=== PATIENT | male | born 1950 | race Hispanic/Latino ===

== ENCOUNTER 2017-11-05 13:19 | Outpatient (CLI) | payer MEDICARE, BC ==
--- NOTE | 2017-11-05 15:45 | RAD ---
SIX VIEWS CERVICAL SPINE: INDICATION: History of prior neck surgery with pain between the shoulders. FINDINGS: There is an ACDF spanning C3 through C6. Spinal alignment appears within normal limits. No abnormal translational motion is grossly evident. The instrumentation projects in the expected position. Th ere are prominent carotid body calcifications within the neck. The lung apices are clear. Small C7 ribs are present bilaterally. IMPRESSION: 1. Anterior cervical diskectomy and fusion spanning C3 through C6. 2. No anterior abnormal translational motion. 3. Bilateral cervical ribs at C7. POS: [facility]
--- NOTE | 2017-11-05 15:50 | CT ---
CT CERVICAL SPINE WITHOUT CONTRAST: INDICATION: Pain within the shoulder blades. History of neck surgery 3 years ago. FINDINGS: Thee is an ACDF spanning C3 through C6. There is moderate degenerative disk disease at C6-7. There is congenital central canal narrowing, mild to moderate in severity. No acute fracture is evident. Craniocervical junction demonstrates a mild to moderate degenerative c hange. There are calcifications of the C1-C2 ligaments with some periarticular erosive change of the dens which can be seen with entities such as CPP deposition disease. At C2-C3, there is no appreciable osseous central canal narrowing. There is uncovertebral facet join t degenerative change likely inducing mild left osseous neural foraminal narrowing. At C3-4, there is no appreciable osseous central canal or neural foraminal narrowing. At C4-5, there is no appreciable osseous central canal or neural foraminal narrowing. At C5-6, there is no appreciable osseous neural foraminal narrowing. At C6-7, there is osseous neural foraminal narrowing. At C7-T1, there is no appreciable osseous neural foraminal narrowing. There are small cervical ribs seen at C7. Prevertebral soft tissues appear within normal limits. Lung apices are clear. IMPRESSION: 1. Anterior cervical diskectomy and fusion spanning C3 through C6 with moderate adjacent segment deg eneration of C6-7. There is mild left osseous neural foraminal narrowing at C2-3. 2. 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 3. Periarticular erosive change of the dens with associated adjacent periarticular ligamentous calci fications can be seen with entities such as calcium pyrophosphate dihydrate deposition disease. 4. Bilateral cervical ribs at C7. POS: [facility]
--- NOTE | 2017-11-05 15:58 | RAD ---
RADIOGRAPH LUMBAR SPINE 4 VIEWS: 11/05/2017 HISTORY: A 47-year-old male with lumbar radiculopathy (M54.16). COMPARISON: None. TECHNIQUE: AP view. Lateral view. Lateral flexion and extension views. FINDINGS: There are five lumbar type vertebrae. There is anterior wedge compression fracture deformity of unkn own age of T12, with a maximum of at least 50% loss of height anteriorly. The lumbar vertebral body heights are maintained. Disk spaces are maintained. Alignment is normal. There is no instability b etween flexion and extension. There are moderately large marginal endplate osteophytes that protrude bilaterally laterally into the prevertebral space. There are multiple surgical clips in the posteri or aspect of the abdominal cavity and anterior pelvis. IMPRESSION: 1. Compression fracture of T12, of unknown age. 2. No spondylolisthesis and no instability. 3. No disc space narrowing in the lumbar spine at any level. 4. Evidence of previous abdominal and pelvic surgery. REJI [] POS: [facility]
--- NOTE | 2017-11-05 16:26 | MRI ---
MRI LUMBAR SPINE WITHOUT CONTRAST: Date: 11/05/17 HISTORY: Pain radiating down both lower extremities. COMPARISON: None. TECHNIQUE: MRI lumbar spine is performed without intravenous Gadolinium administration. Multisequential, multipl marla imaging is performed. FINDINGS: There is mild loss of vertebral body height at T12 without STIR hyperintensity to suggest acute proce ss. Remote mild compression fracture is favored. No significant retropulsion. The lumbar vertebra hav e appropriate T1 marrow signal intensity. No evidence of fracture. Symmetric signal intensity of the psoas muscles. There is atrophy of both kidneys. Conus medullaris terminates at the mid L1 level. 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 T11-T12: No high grade central canal stenosis. Moderate bilateral foraminal narrowing. T12-L1: No high grade central canal stenosis. Mild bilateral foraminal narrowing. L1-2: Adequate disc hydration. Generalized disc bulge, ligamentum flavum thickening, and facet hypertrophy result in mild central canal stenosis. Moderate bilateral neural foraminal narrowing. L2-L3: Adequate disc hydration. Generalized disc bulge, ligamentum flavum thickening, and facet hypertrophy result in moderate central canal stenosis. Moderate bilateral foraminal narrowing. L3-L4: Adequate disc hydration. Generalized disc bulge, ligamentum flavum thickening, and facet hypertrophy result in mild to moderate central canal stenosis. Moderate right and left foraminal narrowing. L4-L5: Adequate disc hydration. Generalized disc bulge, ligamentum flavum thickening, and facet hypertrophy result in mild central canal stenosis. There is narrowing of the left subarticular zone. Disc materia l abuts, but does not obscure the traversing left L5 nerve root. Right neural foramen is patent. Mild left foraminal narrowing. L5-S1: Adequate disc hydration. No significant central canal stenosis. Mild bilateral neural foraminal narro wing. IMPRESSION: Degenerative changes in the lumbar spine as detailed above. POS: [facility]
--- NOTE | 2017-11-05 16:30 | MRI ---
MRI THORACIC SPINE WITHOUT CONTRAST: INDICATIONS: History of back pain with extension down both legs. FINDINGS: There is a remote appearing compression abnormality of T12. Bone marrow signal intensity is otherwis e within normal limits. There is a small bony hemangioma within T7. There is a small central disk p rotrusion at T7-T8 without definite cord compression. There is mild left neural foraminal narrowing at T9-T10 due to a small left foraminal protrusion. The spinal cord demonstrates a normal signal int ensity and contour. IMPRESSION: 1. Mild multilevel spondylosis of the lumbar spine. 2. Mild central disk protrusion at T7-T8 with mild effacement of the ventral subarachnoid space with out cord compression. 3. Mild left neural foraminal narrowing at T9-T10 due to a small protrusion. 4. Chronic T12 compression fracture. POS: [facility]
--- NOTE | 2017-11-05 16:33 | MRI ---
MRI CERVICAL SPINE WITHOUT CONTRAST: Date: 11/05/17 HISTORY: Pain between shoulder blades. Neck surgery, 3 years ago. COMPARISON: None. TECHNIQUE: Cervical spine MRI is performed without intravenous Gadolinium administration. Multisequential, multi planar imaging is performed. CORRELATION; Cervical spine radiograph series dated 11/05/[address] cervical spine dated 11/05/17. FINDINGS: There is metallic susceptibility artifact due to anterior fusion changes at C3, C4, C5, and C6. Prost hesis at the C3-C4, C4-C5, and C5-C6 levels noted. Visualized upper cervical, distal cervical, and up per thoracic vertebra have appropriate signal intensity in the T1 and T2-weighted images. No signific ant STIR hyperintensity to suggest edema or ligamentous injury. Visualized brain parenchyma, cervicomedullary junction, cervical cord, and the upper thoracic cord diego ve a normal size and signal intensity. C2-C3: No significant disc osteophyte complex. No significant central canal stenosis. Mild bilateral foramin al narrowing. C3-C4: Broad based disc osteophyte complex. No high grade central canal stenosis or high grade foraminal blanca rowing. C4-C5: Broad based disc osteophyte complex. Evaluation is limited by susceptibility artifact and motion degr adation. Refer to CT performed earlier today for better detail. Limited evaluation of the neural fora glenna. At least mild foraminal narrowing may be present. C5-C6: There appears to be a broad based osteophyte complex with mild central canal stenosis. Right neural f oramen is patent. Mild left foraminal narrowing. C6-C7: No significant disc osteophyte complex. No significant central canal stenosis. Foramina are patent. C7-T1: No significant central canal stenosis or foraminal narrowing. IMPRESSION: Limited evaluation due to motion degradation and metallic susceptibility artifact. Degenerative montaño es and postoperative changes described above. POS: [facility]
== END 2017-11-05 13:20 | disposition home or self-care (01) ==
LOC: TBSIIMAG 13:19
PROVIDERS: ATTEND Surgery
DX: M51.14 Intervertebral disc disorders with radiculopathy, thoracic region (principal); M48.54XA Collapsed vertebra, not elsewhere classified, thoracic region, initial encounter for fracture; M47.22 Other spondylosis with radiculopathy, cervical region; M47.26 Other spondylosis with radiculopathy, lumbar region; M48.02 Spinal stenosis, cervical region; M99.82 Other biomechanical lesions of thoracic region; Z98.1 Arthrodesis status; Z98.890 Other specified postprocedural states
CPT/HCPCS: 72050; 72120; 72125; 72141; 72146; 72148; 82565

== ENCOUNTER → 2018-04-25 | Day surgery (SDC) | payer MEDICARE, BC ==
[~2018-04-25] MED LIST: Bacitracin Zinc Ointment 30 gm TUBE ONE; Fentanyl 100 MCG/2 ML VIAL ONE; Midazolam HCl 2 mg/2 ml Vial ONE; Sodium Chloride 0.9% 0 ML ONE; Thrombin 5000 UNITS/5 ML VIAL ONE
[2018-04-25 07:30] LABS: Prothrombin Time 13.7 SEC (12.0-14.7)
[2018-04-25 07:31] LABS: PTT 31.7 SEC (22.9-36.1)
--- NOTE | 2018-04-25 15:20 | EKG ---
Test Reason : PREOP Blood Pressure : / mmHG Vent. Rate : 085 BPM Atrial Rate : 087 BPM P-R Int : 000 ms QRS Dur : 096 ms QT Int : 366 ms P-R-T Axes : 000 044 053 degrees QTc Int : 435 ms Atrial fibrillation Abnormal ECG No previous ECGs available Confirmed by ALY GARCIA, DR. Maldonado ([id number]) on 04/25/2018 3:20:21 PM Referred By: DRU Confirmed By:DR. Erica UL MD
== END ==
LOC: SDC 06:10
PROVIDERS: ATTEND Surgery
DX: M48.061 Spinal stenosis, lumbar region without neurogenic claudication (principal); M54.16 Radiculopathy, lumbar region; I10 Essential (primary) hypertension; E11.9 Type 2 diabetes mellitus without complications; K21.9 Gastro-esophageal reflux disease without esophagitis; E78.00 Pure hypercholesterolemia, unspecified; I48.91 Unspecified atrial fibrillation; Z79.4 Long term (current) use of insulin; Z79.899 Other long term (current) drug therapy; Z94.0 Kidney transplant status; Z53.09 Procedure and treatment not carried out because of other contraindication
CPT/HCPCS: 85610; 85730; 93005; 93010; A4216; J2250; J3010; J3370; J3490

== ENCOUNTER 2018-07-09 06:26 | Day surgery (SDC) | payer MEDICARE, BC ==
[2018-07-08 10:17] VITALS: BMI 28.8
[2018-07-09] MEDS ORDERED: CEFAZOLIN 2 GM/50 ML BAG ONE (06:47)
[2018-07-09] MEDS ORDERED: Bacitracin Zinc Ointment 30 gm TUBE ONE (06:51)
[2018-07-09] MEDS ORDERED: Sodium Chloride 0.9% 0 ML ONE (06:51)
[2018-07-09] MEDS ORDERED: Thrombin 5000 UNITS/5 ML VIAL ONE ×2 (06:59→07:00)
[2018-07-09 07:02] LABS: #Eosinphils 0.2 thou/uL (0.0-0.7); #Lymphocytes 0.8 thou/uL (1.20-3.40); #Neutrophils 10.4 thou/uL (1.40-6.50); %Basophils 0.2 % (0.0-1.0); %Eosinophils 1.3 % (0.0-10.0); %Lymphocytes 6.7 % (21.0-51.0); %Monocytes 7.9 % (0.0-10.0); %Neutrophils 83.9 % (42.0-75.0); Hemoglobin 8.3 g/dL (14.0-18.0); Mean Corpuscular HGB CONC 31.5 g/dL (32.0-36.0); Mean Corpuscular Hemoglobin 27.3 pg (27.0-31.0); Mean Corpuscular Volume 86.6 fL (78.0-98.0); Mean Platelet Volume 7.8 fL (7.4-10.4); Platelet Count 291 thou/uL (130-400); RBC Distribution Width 13.5 % (11.5-14.5); Red Blood Cell (RBC) Count 3.04 mill/uL (4.70-6.10); White Blood Cell (WBC) Count 12.4 thou/uL (4.8-10.8)
[2018-07-09 07:06] LABS: INR-International Normal Ratio 1.1; Prothrombin Time 13.9 SEC (12.0-14.7)
[2018-07-09] MEDS ORDERED: Fentanyl 100 MCG/2 ML VIAL ONE (07:06)
[2018-07-09] MEDS ORDERED: Atracurium 100 MG/10 ML VIAL ONE (07:08)
[2018-07-09 07:20] LABS: Anion Gap 15 mmol/L (10-20); BUN (Urea Nitrogen) 80 mg/dL (8.4-25.7); Calc. Creatinine Clearance 25 mL/min (70-130); Calcium 8.9 mg/dL (7.8-10.44); Carbon Dioxide 26 mmol/L (23-31); Chloride 105 mmol/L (98-107); Estimated GFR-MDRD 18; Potassium 5.4 mmol/L (3.5-5.1); Sodium 141 mmol/L (136-145)
[2018-07-09 07:24] LABS: Glucose 57 mg/dL (80-115)
[2018-07-09] MEDS ORDERED: Dextrose 50% Abboject 50 ML SYRINGE ONE (07:25)
== END 2018-07-09 08:10 | disposition home or self-care (01) ==
LOC: SDC 06:26
PROVIDERS: ATTEND Surgery
DX: M48.061 Spinal stenosis, lumbar region without neurogenic claudication (principal); M54.16 Radiculopathy, lumbar region; Z53.9 Procedure and treatment not carried out, unspecified reason; Z79.4 Long term (current) use of insulin; Z79.899 Other long term (current) drug therapy
CPT/HCPCS: 36415; 80048; 85025; 85610; 85730; 86850; 86900; 86901; 93005; 93010; J3010; J3370; J3490